=== PATIENT | male | born 2000 | race Caucasian/White ===

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

== ENCOUNTER 2020-01-29 10:30 | Outpatient (RCR) | payer MEDICAID ==
[~2020-01-29] VITALS: Ht 183 cm; Wt 127.3 kg
[~2020-01-29 10:30] MED LIST: IBUP-1780 PO
== END 2020-01-29 12:04 | disposition home or self-care (01) ==
LOC: PREOP 10:30
PROVIDERS: ATTEND Surgery
DX: Z01.812 Encounter for preprocedural laboratory examination (principal); R22.1 Localized swelling, mass and lump, neck

== ENCOUNTER → 2020-02-02 | Outpatient (CLI) | payer MEDICAID ==
[~2020-02-02] MED LIST changes: +HYDR-4226 PO
== END ==
LOC: LAB FS 10:00
PROVIDERS: ATTEND Surgery
DX: Z01.812 Encounter for preprocedural laboratory examination (principal); R22.1 Localized swelling, mass and lump, neck; Z20.828 Contact with and (suspected) exposure to other viral communicable diseases
CPT/HCPCS: 87635

== ENCOUNTER 2020-02-04 08:22 | Day surgery (SDC) | payer MEDICAID ==
[2020-02-04] VITALS (10 sets, daily range): BP systolic 129–148; BP diastolic 60–111
[~2020-02-04] VITALS: Ht 183 cm; Wt 127.3 kg
[~2020-02-04 08:22] MED LIST changes: -HYDR-4226 PO
[2020-02-04] MEDS ORDERED: ceFAZolin 2 GM IV Premixed 50 ML IV ONE (08:45)
[2020-02-04] MEDS ORDERED: ONDANSETRON 4 MG/2 ML (SDV) Z0FRAN ONE ×2 (09:06→10:24)
[2020-02-04] MEDS: LACTATED RINGERS 1,000 ML IV PRN ×2 (09:12→11:20)
[2020-02-04] MEDS ORDERED: ONDANSETRON 4 MG/2 ML (SDV) Z0FRAN IVP ONE (09:15)
[2020-02-04] MEDS ORDERED: LIDOCAINE/EPI 1%-1:100,000 (XYLOCAINE) 20ML ONE (09:58)
[2020-02-04] MEDS ORDERED: fentaNYL INJECTION 100 MCG/2 ML AMP ONE (10:14)
[2020-02-04] MEDS ORDERED: MIDAZOLAM 2 MG/2 ML (VERSED) VIAL ONE (10:16)
[2020-02-04] MEDS ORDERED: LIDOCAINE PF 2% 5 ML (XYLOCAINE) VIAL ONE (10:23)
[2020-02-04] MEDS ORDERED: proPOfol 200 MG/20 ML (DIPRIVAN) VIAL IV ONE (10:23)
[2020-02-04] MEDS ORDERED: ROCURONIUM 10 MG/ML 5 ML SYRINGE IV ONE (10:24)
[2020-02-04] MEDS ORDERED: SEVOFLURANE (ULTANE) 15 ML INHAL SOLN ONE ×4 (10:24→11:52)
[2020-02-04] MEDS ORDERED: NEOSTIGMINE 3 MG/3 ML VIAL ONE (11:42)
[2020-02-04] MEDS ORDERED: GLYCOPYRROLATE 0.2 MG/ML (ROBINUL) 2 ML VIAL ONE (11:42)
--- NOTE | 2020-02-04 11:57 | Progress Note-Post Operative ---
Post-Operative Progess Note Surgeon (s)/Fudge Candy Maker (s) Surgeon CARLOS A PEARSON DO Fudge Candy Maker: JENNIFER Perez Pre-Operative Diagnosis post neck mass Post-Operative Diagnosis same pending path Procedure & Operative Findings Date of Procedure 02/04/20 Procedure Performed/Findings Exc of Posterior neck mass; down to fascia 6.5cm incision Anesthesia Type GET Estimated Blood Loss Estimated blood loss (mL): less than 10ml Specimens/Packing Specimens Removed posterior neck mass, appx softball size CARLOS A PEARSON DO Feb 04, 2020 11:57
[2020-02-04] MEDS ORDERED: HYDR-4226 PO (11:58)
--- NOTE | 2020-02-04 12:00 | Discharge Inst-Surgical ---
Discharge Inst-Surgical Depart Medication/Instructions New, Converted or Re-Newed RX: RX Given to Pt/Family Patient Instructions Follow up Appt: Make appointment for 1 week. [phone] Instructions: May shower in 24 hours, no tub bath or soaking. Use incentive spirometer at home as directed. No Smoking Skin/Wound Care: You need to come in to clinic to have sutures removed. Symptoms to Report: Appetite Changes, Extremity Discoloration, Numbness/Tingling, Swelling Increased, Bleeding Excessive, Eyesight Changes, Pain Increased, Urine Color Change, Constipation(Persistent), Fever over 101 degree F, Pain/Pressure in chest, Urinating Difficulty, Cough Up/Vomit Blood, Heart Beat Irreg/Pounding, Pain/Pressure in jaw, Cramps in feet or legs, Lightheadedness, Pain/Pressure in shoulder, Diarrhea(Persistent), Memory Changes Suddenly, Questions/Concerns, Weight gain consecutive days, Dizziness/Fainting, Nausea/Vomiting, Shortness of Breath, Weight gain over 2 pounds If questions or concerns contact your physician Or seek help at emergency department. Activity Activity as Tolerated: Yes Activity Instructions: Avoid Stress to Incision Driving Instructions: No Driving/Refer to Dr. Dumont Discharge Diet: No Restrictions Diet After 24 Hours: Clear Liquid if Nauseous If Any Problems/Questions/Issu: Contact Your Physician, Go to Emergency Room Skin/Wound Care Infection Signs and Symptoms: Increased Redness, Foul Odor of Wound, Increased Drainage, Skin Itchy or Has a Rash, Increased Swelling, Temperature Above 101 F Bathing Instructions: Shower Stitches/[place]/Dermabond Dis: Care of Stitches Ice Pack: Ice On and Off Site (as needed for pain) CARLOS A PEARSON DO Feb 04, 2020 12:00
[2020-02-04] MEDS ORDERED: ONDANSETRON 4 MG/2 ML (SDV) Z0FRAN IVP PRN (12:30)
[2020-02-04] MEDS ORDERED: morphine INJ 10 MG/ML 1ML (SYR OR VIAL) IVP ONE (12:30)
--- NOTE | 2020-02-04 12:31 | Anesthesia-General Post-Op ---
General Patient Condition Mental Status/LOC: Same as Preop Cardiovascular: Satisfactory Nausea/Vomiting: Absent Respiratory: Satisfactory Pain: Controlled Complications: Absent Post Op Complications Complications None Follow Up Care/Instructions Patient Instructions None needed. Anesthesia/Patient Condition Patient Condition Patient is doing well, no complaints, stable vital signs, no apparent adverse anesthesia problems. No complications reported per nursing. DELVIS VALLE CRNA Feb 04, 2020 12:31
[2020-02-04] MEDS ORDERED: HYDROcodone/APAP 5 MG/325 MG (LORTAB) TAB ONE (13:41)
[2020-02-04] MEDS ORDERED: HYDROcodone/APAP 5 MG/325 MG (LORTAB) TAB PO ONE (14:00)
--- NOTE | 2020-02-04 20:23 | OPERATIVE REPORT ---
DATE OF SERVICE: PREOPERATIVE DIAGNOSIS: Posterior neck/back mass. POSTOPERATIVE DIAGNOSIS: Posterior neck/back mass, pending pathology. PROCEDURE: Excision of posterior neck/back mass. SURGEON: Chad Rankin DO CERTIFIED SURGICAL TECHNICIAN: Luli Alcala MS4. ANESTHESIA: General endotracheal tube. SPECIMEN: Posterior neck/back mass measuring about 8 cm x about 7 cm x about 6 cm. BLOOD LOSS: Less than 10 mL. FLUIDS: Per anesthesia. POSTOPERATIVE CONDITION: Stable. INDICATION FOR PROCEDURE: The patient is a 19-year-old male who noticed a mass that he thought was on the back of his neck. It was actually right at the base of the neck and top of the back, is getting bigger bothering him and he wanted this removed. FINDINGS: The patient had a mass removed, it measured about 8 cm wide x about 7 cm long and about 6 cm deep. It was just on top of this fascia. PROCEDURE NOTE: After informed consent was obtained, the patient was brought to the operating room, placed on the table in the prone position. He was then sterilely prepped and draped in normal fashion. Local lidocaine was used to infiltrate the skin and then made an incision with #15 blade, carried down through the skin and into subcutaneous tissue, this incision measured about 6.5 cm long. Unfortunately, this mass did not really pop out like a normal lipoma. This did look like it was probably fat, but it was very stuck. I had this slowly dissect this out; actually had to dissect out taking out the top half and then bottom half. This measured about 8 cm wide x about 7 cm long and about [address] down to just on top of the fascia covering the muscle using Bovie electrocautery as well as some blunt dissection to completely remove this mass. Copiously irrigated with normal saline. Hemostasis obtained using Bovie electrocautery, then elected to close the incision, closing with a 2-0 nylon four interrupted vertical mattress sutures and then closed with #6 simple interrupted sutures to close the skin. Area was cleaned and dried, pressure dressing placed. The patient tolerated the procedure. Sponge, instrument and needle counts were correct at the end of the case. Job ID: [id number] DocumentID: [id number] Dictated Date: 02/04/2020 13:17:15 Patient Relations Liaison Date: 02/04/2020 20:22:54 Dictated By: CHAD RANKIN DO
== END 2020-02-04 14:05 | disposition home or self-care (01) ==
LOC: SDC 08:22
PROVIDERS: ATTEND Surgery
DX: D17.0 Benign lipomatous neoplasm of skin and subcutaneous tissue of head, face and neck (principal); R22.1 Localized swelling, mass and lump, neck; E66.9 Obesity, unspecified; Z68.38 Body mass index [BMI] 38.0-38.9, adult; Z79.899 Other long term (current) drug therapy; Z83.3 Family history of diabetes mellitus
CPT/HCPCS: 87081; 88304

== ENCOUNTER 2020-12-05 18:18 | Emergency (ER) | payer MEDICAID ==
[~2020-12-05] VITALS: Ht 185.4 cm; Wt 124.0 kg
[~2020-12-05 18:18] MED LIST changes: +HYDR-4226 PO
--- NOTE | 2020-12-05 18:23 | ED GU-Male ---
General Chief Complaint: - Reproductive Stated Complaint: TESTICLE PAIN History of Present Illness Date Seen by Provider: Dec 05, 2020 Time Seen by Provider: 18:23 Initial Comments 20-year-old male presents with right testicular pain. Reports that it started maybe an hour ago when he was standing at work. Patient reports she has a mild dysuria, some burning stinging when he urinates. He has some mild right flank pain. He denies any fevers chills nausea vomiting or other systemic complaints Allergies and Home Medications Allergies Coded Allergies: No Known Drug Allergies (Unverified , 09/03/18) Patient Home Medication List Home Medication List Reviewed: Yes Hydrocodone/Acetaminophen (Hydrocodone/Acetaminophen 5 MG/325 MG TAB) 1 Each Tablet, 1 TAB PO Q6H Prescribed by: CARLOS A PEARSON on 02/04/20 4438 Review of Systems Review of Systems Constitutional: No chills, No fever EENTM: no symptoms reported Respiratory: no symptoms reported Cardiovascular: no symptoms reported Gastrointestinal: no symptoms reported Genitourinary: see HPI, burning, flank pain, pain Musculoskeletal: no symptoms reported Skin: no symptoms reported Psychiatric/Neurological: No Symptoms Reported Endocrine: No Symptoms Reported Past Igfrjaa-Gocptd-Jnorlr Hx Seasonal Allergies Seasonal Allergies: Yes Past Medical History Surgeries: Yes (intestine sx when little) Abdominal Respiratory: No Currently Using CPAP: No Currently Using BIPAP: No Cardiac: No Neurological: No Genitourinary: No Gastrointestinal: No Musculoskeletal: No Endocrine: No HEENT: No Cancer: No Psychosocial: No Integumentary: No (post neck mass) Blood Disorders: No Adverse Reaction/Blood Tranf: No Physical Exam Vital Signs Vital Signs - First Documented 12/05/20 18:23 Temp 36.5 Pulse 68 Resp 18 B/P (MAP) 146/91 (109) Pulse Ox 100 O2 Delivery Room Air Capillary Refill : Height, Weight, BMI Height: 6'0" Weight: 249lbs. oz. 112.562780bb; 38.01 BMI Method:Stated General Appearance: WD/WN, no apparent distress Neck: full range of motion Cardiovascular: regular rate, rhythm, no edema Respiratory: lungs clear Genital/Rectal: normal genital exam, other (normal cremasteric reflex. no tenderness on exam ) Back: CVA tenderness (R) Progress/Results/Core Measures Suspected Sepsis SIRS Temperature: Pulse: Respiratory Rate: Blood Pressure / Mean: Results/Orders Lab Results Laboratory Tests Test 12/05/20 18:28 Range/Units Urine Color YELLOW Urine Clarity CLEAR Urine pH 6.0 5-9 Urine Specific White >=1.030 1.016-1.022 Urine Protein NEGATIVE NEGATIVE Urine Glucose (UA) NEGATIVE NEGATIVE Urine Ketones NEGATIVE NEGATIVE Urine Nitrite NEGATIVE NEGATIVE Urine Bilirubin NEGATIVE NEGATIVE Urine Urobilinogen 1.0 < = 1.0 MG/DL Urine Leukocyte Esterase NEGATIVE NEGATIVE Urine RBC (Auto) 3+ H NEGATIVE Urine RBC 5-10 H /HPF Urine WBC NONE /HPF Urine Crystals NONE /LPF Urine Bacteria NEGATIVE /HPF Urine Casts NONE /LPF Urine Mucus SMALL H /LPF Urine Culture Indicated NO My Orders Orders - MARBIN JAMAR L DO Ua Culture If Indicated (12/05/20 18:23) Ketorolac Injection (Toradol Injection) (12/05/20 18:28) Ct Abdomen/Pelvis Wo (12/05/20 18:38) Metoclopramide Injection (Reglan Injecti (12/05/20 18:38) Lactated Ringers (Lr 1000 Ml Iv Solution (12/05/20 18:38) Vital Signs/I&O 12/05/20 18:23 Temp 36.5 Pulse 68 Resp 18 B/P (MAP) 146/91 (109) Pulse Ox 100 O2 Delivery Room Air Capillary Refill : Departure Impression Primary Impression: Calculi, ureter Disposition: 01 HOME, SELF-CARE Condition: Stable Departure-Patient Inst. Referrals: STEVEN MARKS MD (PCP/Family) Primary Care Physician Patient Instructions: Kidney Stone Diet, Renal Colic, Kidney Stone, Adult ED Add. Discharge Instructions: Ibuprofen, 800 mg every 6-8 hours as needed for pain All discharge instructions reviewed with patient and/or family. Voiced understanding. Scripts Hydrocodone/Acetaminophen (Hydrocodone-Acetamin 5-325 mg) 1 Each Tablet 1 TAB PO Q8H PRN for PAIN-MODERATE (5-7), #10 TAB Prov: JEAN JAMA DO 12/05/20 Ondansetron (Ondansetron Odt) 4 Mg Tab.rapdis 4 MG PO Q6H PRN for NAUSEA/VOMITING, #20 TAB 0 Refills Prov: MARBIN JAMAR L DO 12/05/20 MARBIN JAMAR L DO Dec 05, 2020 18:23
[2020-12-05] MEDS ORDERED: KETOROLAC 30 MG/ML VIAL IM STA (18:28)
[2020-12-05 18:30] LABS: CLARITY,URINE CLEAR; COLOR,URINE YELLOW
[2020-12-05 18:31] LABS: BACTERIA,URINE NEGATIVE /HPF; BILIRUBIN,URINE NEGATIVE (NEGATIVE); GLUCOSE, URINE (UA) NEGATIVE (NEGATIVE); KETONES,URINE NEGATIVE (NEGATIVE); LEUKOCYTE ESTERASE ,URINE NEGATIVE (NEGATIVE); NITRITE,URINE NEGATIVE (NEGATIVE); PROTEIN,URINE NEGATIVE (NEGATIVE)
[2020-12-05] MEDS ORDERED: LACTATED RINGERS 1,000 ML IV STA (18:38)
[2020-12-05] MEDS ORDERED: METOCLOPRAMIDE INJ 10 MG/2 ML (REGLAN) IVP STA (18:38)
--- NOTE | 2020-12-05 19:04 | Diagnostic Imaging Report ---
PROCEDURE: CT abdomen and pelvis without contrast. TECHNIQUE: Multiple contiguous axial images were obtained through the abdomen and pelvis without the use of intravenous contrast. Auto Exposure Controls were utilized during the CT exam to meet ALARA standards for radiation dose reduction. INDICATION: Right testicular pain. Pain with urination. COMPARISON: None. FINDINGS: The heart is unremarkable. The lung bases are clear. A calculus is seen at the right UVJ measuring 0.4 cm with mild right-sided hydroureteronephrosis. No hydronephrosis is seen in the left kidney. The urinary bladder is nondistended. The liver, spleen, pancreas and adrenal glands have a normal appearance. There is no pathologically enlarged mesenteric or retroperitoneal adenopathy. The bowel loops are nondilated. The appendix is visualized in the right lower quadrant and is nondistended. Small appendicoliths are noted within the appendix. There is no free fluid or free air. No acute osseous abnormality. There is no free air, loculated collection or adenopathy in the pelvis. IMPRESSION: Calculus in the right UVJ measuring 0.4 cm with mild right-sided hydroureteronephrosis. Dictated by: Dictated on workstation # [id number]
[2020-12-05] MEDS ORDERED: ACHD5005 PO (19:11)
[2020-12-05] MEDS ORDERED: ONDA4TAB11 PO (19:11)
[2020-12-05 19:18] VITALS: BP 132/88
== END 2020-12-05 19:19 | disposition home or self-care (01) ==
LOC: EDUNIT# 18:18 → ER FS 18:19
DX: N13.2 Hydronephrosis with renal and ureteral calculous obstruction (principal)
CPT/HCPCS: 74176; 81000

== ENCOUNTER 2022-01-07 12:52 | Emergency (ER) | payer MEDICAID ==
[~2022-01-07] VITALS: Ht 185.5 cm; Wt 119.0 kg
[~2022-01-07 12:52] MED LIST changes: +ACHD5005 PO; +ONDA4TAB11 PO
--- NOTE | 2022-01-07 12:59 | ED Upper Extremity ---
General Chief Complaint: Laceration Stated Complaint: LT HAND LAC History of Present Illness Date Seen by Provider: Jan 07, 2022 Time Seen by Provider: 12:58 Initial Comments 21-year-old male is here with complaints of laceration to his left palm after he tried jumping a wire fence and cut his hand on it. This occurred today prior to coming to the ER. Patient is able to move it without any difficulty and has intact sensation. Allergies and Home Medications Allergies Coded Allergies: No Known Drug Allergies (Unverified , 09/03/18) Patient Home Medication List Home Medication List Reviewed: Yes Hydrocodone/Acetaminophen (Hydrocodone/Acetaminophen 5 MG/325 MG TAB) 1 Each Tablet, 1 TAB PO Q6H Prescribed by: CARLOS A PEARSON on 02/04/20 1158 Hydrocodone/Acetaminophen (Hydrocodone-Acetamin 5-325 mg) 1 Each Tablet, 1 TAB PO Q8H PRN for PAIN-MODERATE (5-7) Prescribed by: JEAN JAMA on 12/05/201910 Ondansetron (Ondansetron Odt) 4 Mg Tab.rapdis, 4 MG PO Q6H PRN for NAUSEA/VOMITING Prescribed by: JEAN JAMA on 12/05/201910 Review of Systems Constitutional: no symptoms reported EENTM: no symptoms reported Respiratory: no symptoms reported Cardiovascular: no symptoms reported Gastrointestinal: no symptoms reported Genitourinary: no symptoms reported Musculoskeletal: see HPI Skin: other (Laceration) Psychiatric/Neurological: No Symptoms Reported Past Wvvaxoe-Puqrha-Iakjwq Hx Immunizations Up To Date First/Initial COVID19 Vaccinat: Not currently vaccinated Second COVID19 Vaccination Akhil: not currently vaccinated Seasonal Allergies Seasonal Allergies: Yes Past Medical History Surgery/Hospitalization HX: None Surgeries: Yes (intestine sx when little) Abdominal Respiratory: No Currently Using CPAP: No Currently Using BIPAP: No Cardiac: No Neurological: No Genitourinary: No Gastrointestinal: No Musculoskeletal: No Endocrine: No HEENT: No Cancer: No Psychosocial: No Integumentary: No (post neck mass) Blood Disorders: No Adverse Reaction/Blood Tranf: No Physical Exam Vital Signs Vital Signs - First Documented 01/07/22 13:00 Temp 36.1 Pulse 80 Resp 18 B/P (MAP) 150/69 (96) O2 Delivery Room Air Capillary Refill : Height, Weight, BMI Height: 6'0" Weight: 249lbs. oz. 112.231674gw; 36.00 BMI Method:Stated General Appearance: WD/WN, no apparent distress HEENT: PERRL/EOMI Wrist: Yes normal inspection, Yes non-tender, Yes no evidence of injury, Yes normal ROM Hand: Left (Left palm shows a 2.5 inch laceration extending through the dermis. ROM unrestricted and no tendon injury suspected. N/V bundle intact. No active bleeding. Laceration is stellate with very thin skin flap.) Neurologic/Psychiatric: alert, oriented x 3 Procedures/Interventions Wound Location: Upper Extremities Other Wound Location Left palm of hand Wound Length (cm): 5 Wound's Depth, Shape: superficial, flap, stellate Wound Explored: clean Irrigated w/ Saline (ccs): 100 Betadine Prep?: No Anesthesia: 1% Lidocaine, Lidocaine w/ Epi (Mixed together, total 8 mL injected for local block) Wound Debrided: minimal Suture: Ethlion Suture Size: 4-0 Number of Sutures: 12 Sterile Dressing Applied?: Yes Progress/Results/Core Measures Results/Orders Vital Signs/I&O 01/07/22 13:00 Temp 36.1 Pulse 80 Resp 18 B/P (MAP) 150/69 (96) O2 Delivery Room Air Progress Progress Note : Progress Note 1. LACERATION REPAIR: - 12 interrupted sutures placed - NSAID and ice -Wound care instructions given verbally and written -Return for suture removal in 7 to 10 days -Tetanus up-to-date within the past 5 years Departure Impression Primary Impression: Laceration of left palm Qualified Codes: S61.412A - Laceration without foreign body of left hand, initial encounter Disposition: 01 HOME, SELF-CARE Condition: Improved Departure-Patient Inst. Referrals: STEVEN MARKS MD (PCP) Primary Care Physician Patient Instructions: Laceration Repair With Stitches ED, Wound Care (DC) Add. Discharge Instructions: - SUTURE REMOVAL IN 7 TO 10 DAYS - WOUND CARE INSTRUCTIONS GIVEN All discharge instructions reviewed with patient and/or family. Voiced understanding. Work/School Note: Work Release Form Date Seen in the Emergency Department: Jan 07, 2022 Return to Work: Jan 09, 2022 Other Restrictions Listed Below: uNABLE TO USE LEFT HAND UNTIL 01/17/22 LINSEY BARKLEY MD Jan 07, 2022 12:59
[2022-01-07 15:04] VITALS: BP 134/78
== END 2022-01-07 15:04 | disposition home or self-care (01) ==
LOC: EDUNIT# 12:52 → ER FS 12:53
DX: S61.412A Laceration without foreign body of left hand, initial encounter (principal); Z28.310 Unvaccinated for COVID-19; W26.8XXA Contact with other sharp object(s), not elsewhere classified, initial encounter; Y93.39 Activity, other involving climbing, rappelling and jumping off

== ENCOUNTER 2022-01-16 16:57 | Emergency (ER) | payer MEDICAID ==
[2022-01-16 17:37] VITALS: BP 137/80
== END 2022-01-16 17:37 | disposition home or self-care (01) ==
LOC: EDUNIT# 16:57 → ER FS 16:58
DX: S61.412D Laceration without foreign body of left hand, subsequent encounter (principal); Z28.310 Unvaccinated for COVID-19; X58.XXXD Exposure to other specified factors, subsequent encounter